=== PATIENT | male | born 1950 | race Caucasian/White ===

== ENCOUNTER 2020-10-09 22:03 | Emergency (ER) | payer MEDICARE, OTHER ==
[~2020-10-09] VITALS: Ht 172.7 cm; Wt 83.3 kg
[~2020-10-09 22:03] MED LIST: ALPR0.5T6 PO; ASPI-39 PO; CALC-95 PO; CYCL-331 PO; FENT1PAT21 TP; MULT-208 PO; OMEP40CA2 PO; SENN1TAB61 PO; VENL-109 PO; VENL75TA PO
--- NOTE | 2020-10-09 22:07 | PHYS DOC ---
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 and the entire rt side of my face was dropping.. it never got better.. I cant even close this right eye.. and it getting all irritated.. just figured.. I ought to get it checked out.. "..." I do not want to be admitted .. just see if you can do something about this..." Patient is a 70 year old male who presents with hx of possible right facial weakness since yesterday morning upon awakening. Entire right side of face is flaccid and a typical Luna's palsy pattern. Patient denies previous history of TIAs or CVAs but gives a history of congenital carotid narrowing on the right.. Has history of previous traumatic head injury years ago after a fall on ice. Patient has somewhat extensive past medical history of chronic bronchitis, COPD, coronary artery disease, CHF, sepsis, pleural effusions, pulmonary nodules, emphysema, chronic pain, arthritis, GERD, anxiety, and hypertension. Follows locally with Dr. Miller and Dr. Wells over the last several years. Patient does continue to smoke in excess of 1 pack cigarettes a day. Patient also has had somewhat increased recent cough that is nonproductive. Some subjective fevers. No recent travel. Does not have any specific Covid contacts but has been around other individuals that have been sick. Patient did not get flu vaccination this season. Review of Systems: Review of Systems: Constitutional: Subjective fever or chills Eyes: Denies change in visual acuity . Does complain of irritation in right eye because he cannot close it. HENT: History of nasal congestion Respiratory: History of a nonproductive cough. Chronic wheezing Cardiovascular: Denies chest pain or edema GI: Denies abdominal pain, nausea, vomiting, bloody stools or diarrhea : Denies dysuria Musculoskeletal: History of chronic back pain and joint pain Integument: Denies rash Neurologic: Denies headache, denies sensory changes . Right facial weakness last couple days. Endocrine: Denies polyuria or polydipsia Lymphatic: Denies swollen glands Psychiatric: Denies depression or anxiety Family History: Family History: Noncontributory to presentation Current Medications: Current Meds: See nursing for home meds Allergies: Allergies: Allergies Coded Allergies Type Severity Reaction Last Updated Verified morphine Allergy Intermediate severe gi problems 10/10/14 Yes Penicillins Allergy Unknown 10/10/14 Yes aspirin Allergy Unknown large doses (takes 81mg daily) 10/10/14 Yes Physical Exam: PE: Constitutional: no acute distress, non-toxic appearance. [] HENT: Normocephalic, atraumatic, bilateral external ears normal, oropharynx moist, no oral exudates, nose normal. Entire right facial droop consistent with Luna's palsy presentation. No sensation loss. Some right ear sensitivity. Increased air conduction 128 fork on right. Eyes: PERRLA, EOMI, conjunctiva injected right, cornea mild limbus injection on right, no discharge. Unable to close right eyelid fully. Neck: Normal range of motion, no tenderness, supple, no stridor. [] Cardiovascular:Heart rate regular rhythm, no murmur, PMI to the left. Monitor shows a sinus 's Lungs & Thorax: Bilateral breath sounds scattered wheezes throughout on auscultation basilar crackles. Abdomen: Bowel sounds normal, soft, no tenderness, no masses, no pulsatile masses. Mildly distended.] Skin: Warm, dry, no erythema, no rash. Poor turgor Back: No tenderness, no CVA tenderness. [] Extremities: No tenderness, no cyanosis, no clubbing, ROM intact, no edema. Generalized chronic muscular and joint pain but states seems more pronounced last couple days. No cording appreciated in legs Neurologic: Alert and oriented X 3, moves all extremities on request, has distal sensory,, no focal deficits noted. Right facial droop-Luna's pattern. [employer] equal. Right-hand dominant. No drift. Psychologic: Affect normal, judgement normal, mood normal. [] EKG: EKG: My interpretation EKG shows a sinus rhythm at 70 bpm. There is some nonspecific ST T strain pattern but no findings of acute STEMI of contralateral changes. EKG is similar to prior on file [] Radiology/Procedures: Radiology/Procedures: [address] [address] IMAGING REPORT Signed PATIENT: TARIK BARAJAS ACCOUNT: [id number] : 1950 LOCATION: ER AGE: 70 SEX: M EXAM STATUS: REG ER ORD. PHYSICIAN: ROSSY TRINIDAD MD REASON: neuro facial RT side, NECK PAIN PROCEDURE: CT HEAD AND CERVICAL SPINE WO PQRS Compliance Statement: One or more of the following individualized dose reduction techniques were utilized for this examination: 1. Automated exposure control 2. Adjustment of the mA and/or kV according to patient size 3. Use of iterative reconstruction technique CT head and cervical spine without contrast 10/10/2020 12:28 AM INDICATION: Right-sided face and neck pain COMPARISON: None available TECHNIQUE: Multiple axial CT images of the head were obtained from skull base through the vertex without intravenous contrast. Multiple axial CT images of the cervical spine were obtained without intravenous contrast. Coronal and sagittal reformats are provided. FINDINGS: Head: Ventricles, sulci and basal cisterns are prominent compatible with mild generalized cerebral line loss. Low-attenuation in the periventricular white mat ter is suggestive of chronic small vessel ischemic changes. There is no hydrocephalus. Todd-white matter differentiation is normal. There is no acute intracranial hemorrhage. There is no mass, mass effect or midline shift. Posterior fossa is normal in appearance. Visualized portions of the orbits are normal. Paranasal sinuses are well aerated. Mastoid air cells are well aerated. Scalp and calvaria are normal. Cervical spine: Minimal anterolisthesis of C7 on T1. There is noninstrumented osseous fusion of C5-C6. There is moderate disc height loss at C2-C3 with endplate erosive changes. Degenerative changes are identified at the atlantoaxial articulation. There is a posterior disc osteophyte complex at C2-C3 with moderate facet and uncovertebral joint disease resulting in moderate left neuroforaminal stenosis and moderate spinal canal stenosis. There is moderate facet arthropathy asy mmetric to the left. Uncovertebral joint disease noted. Mild to moderate osseous neural foraminal stenosis. There is no prevertebral soft tissue swelling. Thyroid gland is normal in appearance. Mild centrilobular pulmonary emphysematous changes are identified. There is a 5 mm subpleural solid noncalcified pulmonary nodule in the left upper lobe (series 4, image 98). IMPRESSION: 1. No acute intracranial hemorrhage. Mild generalized cerebral volume loss. Low- attenuation in the periventricular white matter is suggestive of chronic small vessel ischemic changes. 2. No acute fracture of the cervical spine. Moderate cervical spondylosis, as detailed above. 3. 5 mm subpleural solid noncalcified pulmonary nodule in left upper lobe Fleischner guidelines for incidentally detected pulmonary nodules suggests no routine follow-up for low risk patients and optional CT at 12 months for high risk patients with solid noncalcified pulmonary nodules less than 6 mm in size. 4. Mild centrilobular pulmonary emphysema. Electronically signed by: Patel Barreto MD (10/10/2020 1:03 AM) [facility] DICTATED AND SIGNED BY: PATEL BARRETO MD DATE: 10/10/2057 CC: SUZANNE WELLS MD; ROSSY TRINIDAD MD ~MTH0 0 [][place] [address] IMAGING REPORT Signed PATIENT: TARIK BARAJAS ACCOUNT: [id number] : 1950 LOCATION: ER AGE: 70 SEX: M EXAM STATUS: PRE ER ORD. PHYSICIAN: ROSSY TRINIDAD MD REASON: cp PROCEDURE: PORTABLE CHEST 1V XR CHEST 1V 10/09/2020 10:31 PM INDICATION: Chest pain COMPARISON: CT chest 10/10/2014 TECHNIQUE: Portable frontal view of the chest is provided. FINDINGS: The cardiomediastinal silhouette is within normal limits. Mild perihilar interstitial changes are identified. Trace left pleural effusion with adjacent compressive atelectasis versus infiltrate. There is no pulmonary vascular congestion. No pneumothorax. No suspicious osseous abnormality. IMPRESSION: Mild perihilar interstitial changes may represent interstitial pneumonitis versus interstitial edema. Short-term follow-up two-view chest radiograph could be of benefit. Trace left pleural effusion with adjacent compressive atelectasis versus infiltrate. Electronically signed by: Patel Barreto MD (10/09/2020 11:05 PM) [facility] DICTATED AND SIGNED BY: PATEL BARRETO MD DATE: 10/09/20 0897 CC: SUZANNE WELLS MD; ROSSY TRINIDAD MD ~MTH0 0 Heart Score: HEART Score for Chest Pain: HEART Score for Chest Pain Response (Comments) Value History Moderately Suspicious 1 ECG Nonspecific Repolarizatio 1 Age > 65 2 Risk Factors 1 or 2 Risk Factors 1 Troponin < Normal Limit (x2) 0 Total 5 Risk Factors: Risk Factors: DM, Current or recent (<one month) smoker, HTN, HLP, family history of CAD, obesity. Risk Scores: Score 0 - 3: 2.5% MACE over next 6 weeks - Discharge Home Score 4 - 6: 20.3% MACE over next 6 weeks - Admit for Clinical Observation Score 7 - 10: 72.7% MACE over next 6 weeks - Early Invasive Strategies Course & Med Decision Making: Course & Med Decision Making Pertinent Labs and Imaging studies reviewed. (See chart for details) Reviewed patient's labs and findings in detail and answer questions. Patient declines admission at this time for observation or further evaluation. States he will follow up with Dr. Wells. Patient's neuro presentation is consistent with Luna's palsy. Will do a short course of steroids 50 mg daily for 5 days. We will also do a course of Valtrex. Patient to massage right side of face several times in the day. Patient apply erythromycin ointment to eye 4 times a day and tape eyelid shut at night. Because of pulmonary findings will start on Zithromax 250 mg daily and MDI 2 puffs 4 times a day. Patient follow- up pending Covid test results. Have Dr. Wells review films and follow-up to pulmonary nodules, CHF and recheck his blood pressure after he is compliant with his meds.. Encourage patient to stop smoking. Patient to continue his baby aspirin. Patient to resume his hypertensive meds which he did not take today. Patient to return at any time to complete of observation and further evaluation. . Patient declined anticoagulation at this time. Patient encouraged her to wear his mask covering his nose and mouth at all times when away from home. Recommend patient self isolate especially since stomach symptoms are somewhat consistent with Covid. Impression: 1. Luna's palsy [id number] viral cause 2. Atypical pneumonia 3. Left-sided pleural effusions seen on previous films 4. Pulmonary nodules and emphysema 5. Tobacco abuse 6. Mild elevation in leukocytes 13.2 7. Mild anemia 12.2 hemoglobin 8. Mild elevation D-dimer 0.88 9. Hypertension-noncompliant with his hypertensive meds today [] Hill Disclaimer: Hill Disclaimer: This electronic medical record was generated, in whole or in part, using a voice recognition dictation system. Departure Departure: Referrals: SUZANNE WELLS MD (PCP) Scripts Prednisone (PREDNISONE) 50 Mg Tablet 50 MG PO DAILY for bells for 5 Days, #5 TAB Prov: ROSSY TRINIDAD MD 10/10/20 Azithromycin (ZITHROMAX) 250 Mg Tablet 250 MG PO DAILY for ANTI-BIOTIC for 5 Days, #5 TAB 0 Refills Prov: ROSSY TRINIDAD MD 10/10/20 Valacyclovir Hcl (VALACYCLOVIR) 1,000 Mg Tablet 1000 MG PO BID for Peralta for 7 Days, #14 TAB Prov: ROSSY TRINIDAD MD 10/10/20 Discharge Summary Visit Information Final Diagnosis Problems Medical Problems: (1) Luna's palsy Status: Acute (2) Viral syndrome Status: Acute Brief Hospital Course Allergies Allergies Coded Allergies Type Severity Reaction Last Updated Verified morphine Allergy Intermediate severe gi problems 10/10/14 Yes Penicillins Allergy Unknown 10/10/14 Yes aspirin Allergy Unknown large doses (takes 81mg daily) 10/10/14 Yes Vital Signs Vital Signs Date Time Temp Pulse Resp B/P (MAP) Pulse Ox O2 Delivery O2 Flow Rate FiO2 10/10/20 02:59 55 18 179/82 (114) 93 Room Air 10/09/20 22:03 98.2 Lab Results Laboratory Tests Test 10/09/20 22:50 10/09/20 23:00 10/10/20 00:55 White Blood Count 13.2 x10^3/uL (4.0-11.0) Red Blood Count 4.07 x10^6/uL (4.30-5.70) Hemoglobin 12.2 g/dL (13.0-17.5) Hematocrit 37.6 % (39.0-53.0) Mean Corpuscular Volume 92 fL (79-100) Mean Corpuscular Hemoglobin 30 pg (25-35) Mean Corpuscular Hemoglobin Concent 33 g/dL (31-37) Red Cell Distribution Width 14.2 % (11.5-14.5) Platelet Count 226 x10^3/uL (140-400) Neutrophils (%) (Auto) 73 % (31-73) Lymphocytes (%) (Auto) 19 % (24-48) Monocytes (%) (Auto) 5 % (0-9) Eosinophils (%) (Auto) 2 % (0-3) Basophils (%) (Auto) 1 % (0-3) Neutrophils # (Auto) 9.6 x10^3uL (1.8-7.7) Lymphocytes # (Auto) 2.5 x10^3/uL (1.0-4.8) Monocytes # (Auto) 0.7 x10^3/uL (0.0-1.1) Eosinophils # (Auto) 0.3 x10^3/uL (0.0-0.7) Basophils # (Auto) 0.1 x10^3/uL (0.0-0.2) Prothrombin Time 9.7 SEC (9.4-11.4) Prothromb Time International Ratio 0.9 (0.9-1.1) Activated Partial Thromboplast Time 24 SEC (23-33) D-Dimer (Vania) 0.88 mg/L (0.00-0.50) Sodium Level 138 mmol/L (136-145) Potassium Level 4.0 mmol/L (3.5-5.1) Chloride Level 101 mmol/L (98-107) Carbon Dioxide Level 30 mmol/L (21-32) Anion Gap 7 (6-14) Blood Urea Nitrogen 19 mg/dL (8-26) Creatinine 1.2 mg/dL (0.7-1.3) Estimated GFR (Cockcroft-Gault) 60.0 Glucose Level 119 mg/dL (70-99) Calcium Level 8.4 mg/dL (8.5-10.1) Magnesium Level 1.9 mg/dL (1.8-2.4) Total Bilirubin 0.2 mg/dL (0.2-1.0) Direct Bilirubin 0.1 mg/dL (0.0-0.2) Aspartate Amino Transf (AST/SGOT) 13 U/L (15-37) Alanine Aminotransferase (ALT/SGPT) 18 U/L (16-63) Alkaline Phosphatase 55 U/L (46-116) Creatine Kinase 66 U/L (39-308) Troponin I Quantitative < 0.017 ng/mL (0-0.055) < 0.017 ng/mL (0-0.055) C-Reactive Protein 16.7 mg/L (0-3.3) VN-Ftp-J-Type Natriuretic Peptide 504 pg/mL (0-124) Total Protein 7.0 g/dL (6.4-8.2) Albumin 3.2 g/dL (3.4-5.0) Lipase 43 U/L (73-393) Urine Collection Type Unknown Urine Color Yellow Urine Clarity Clear Urine pH 5.5 Urine Specific Rupert >=1.030 Urine Protein Neg (NEG-TRACE) Urine Glucose (UA) Neg mg/dL (NEG) Urine Ketones (Stick) Neg mg/dL (NEG) Urine Blood Neg (NEG) Urine Nitrite Neg (NEG) Urine Bilirubin Neg (NEG) Urine Urobilinogen Dipstick 0.2 mg/dL (0.2 mg/dL) Urine Leukocyte Esterase Neg (NEG) Urine RBC 0 /HPF (0-2) Urine WBC 0 /HPF (0-4) Urine Squamous Epithelial Cells Occ /LPF Urine Transitional Epithelial Cells Occ /LPF Urine Renal Epithelial Cells Occ /LPF Urine Bacteria Few /HPF (0-FEW) Urine Opiates Screen Neg (NEG) Urine Methadone Screen Neg (NEG) Urine Barbiturates Neg (NEG) Urine Phencyclidine Screen Neg (NEG) Urine Amphetamine/Methamphetamine Neg (NEG) Urine Benzodiazepines Screen Neg (NEG) Urine Cocaine Screen Neg (NEG) Urine Cannabinoids Screen Neg (NEG) Urine Ethyl Alcohol Neg (NEG) Brief Hospital Course Mr. Barajas is a 70 old [sex] who presented with [ ] Discharge Information Dischare Medications Current Medications Lactated Ringer's 1,000 ml @ 100 mls/hr Q10H IV Last administered on 10/09/20at 23:05; Start 10/09/20 at 22:15; Stop 10/10/20 at 03:38; Status DC Erythromycin (Romycin) 0.25 inch 1X ONCE OD Last administered on 10/09/20at 23:04; Start 10/09/20 at 22:15; Stop 10/09/20 at 22:18; Status DC Prednisone (Prednisone) 50 mg 1X ONCE PO Last administered on 10/09/20at 23:04; Start 10/09/20 at 22:30; Stop 10/09/20 at 22:31; Status DC Acyclovir (Zovirax) 800 mg 1X ONCE PO Last administered on 10/09/20at 23:04; Start 10/09/20 at 22:30; Stop 10/09/20 at 22:31; Status DC Azithromycin (Zithromax) 500 mg 1X ONCE PO Last administered on 10/10/20at 01:01; Start 10/10/20 at 00:30; Stop 10/10/20 at 00:31; Status DC Albuterol Sulfate (Ventolin Hfa Inhaler) 2 puff 1X ONCE INH Last administered on 10/10/20at 02:48; Start 10/10/20 at 02:00; Stop 10/10/20 at 02:59; Status DC Active Scripts Active Prednisone 50 Mg Tablet 50 Mg PO DAILY 5 Days Zithromax (Azithromycin) 250 Mg Tablet 250 Mg PO DAILY 5 Days Valacyclovir (Valacyclovir Hcl) 1,000 Mg Tablet 1,000 Mg PO BID 7 Days Dragon Disclaimer This chart was dictated in whole or in part using Voice Recognition software in a busy, high-work load, and often noisy Emergency Department environment. It may contain unintended and wholly unrecognized errors or omissions. Dragon Disclaimer This chart was dictated in whole or in part using Voice Recognition software in a busy, high-work load, and often noisy Emergency Department environment. It may contain unintended and wholly unrecognized errors or omissions. ROSSY TRINIDAD MD Oct 09, 2020 22:07
[2020-10-09] MEDS ORDERED: ERYTHROMYCIN 0.5% OPHTH OINTMENT 1GM TUBE. OD ONE (22:15)
[2020-10-09] MEDS ORDERED: IV RINGERS SOLUTION,LACTATED 1,000 ML IV SCH (22:15)
[2020-10-09] MEDS ORDERED: predniSONE 10 MG TABLET PO ONE (22:30)
[2020-10-09] MEDS ORDERED: ACYCLOVIR 200 MG CAPSULE PO ONE (22:30)
--- NOTE | 2020-10-09 23:08 | RAD ---
XR CHEST 1V 10/09/2020 10:31 PM INDICATION: Chest pain COMPARISON: CT chest 10/10/2014 TECHNIQUE: Portable frontal view of the chest is provided. FINDINGS: The cardiomediastinal silhouette is within normal limits. Mild perihilar interstitial changes are fred ntified. Trace left pleural effusion with adjacent compressive atelectasis versus infiltrate. There is no pulm onary vascular congestion. No pneumothorax. No suspicious osseous abnormality. IMPRESSION: Mild perihilar interstitial changes may represent interstitial pneumonitis versus interstitial edema. Short-term follow-up two-view chest radiograph could be of benefit. Trace left pleural effusion with adjacent compressive atelectasis versus infiltrate. Electronically signed by: Alis Kaba MD (10/09/2020 11:05 PM) JASEN
[2020-10-09 23:43] LABS: BASO # 0.1 x10^3/uL (0.0-0.2); BASO % 1 % (0-3); EOS # 0.3 x10^3/uL (0.0-0.7); EOS % 2 % (0-3); HEMATOCRIT 37.6 % (39.0-53.0); HEMOGLOBIN 12.2 g/dL (13.0-17.5); LYMPH # 2.5 x10^3/uL (1.0-4.8); LYMPH % 19 % (24-48); MEAN CORPUSCULAR HEMOGLOBIN 30 pg (25-35); MEAN CORPUSCULAR HGB CONC 33 g/dL (31-37); MEAN CORPUSCULAR VOLUME 92 fL (79-100); MONO # 0.7 x10^3/uL (0.0-1.1); MONO % 5 % (0-9); NEUT # 9.6 x10^3uL (1.8-7.7); NEUT % 73 % (31-73); PLATELET COUNT 226 x10^3/uL (140-400); RED BLOOD COUNT 4.07 x10^6/uL (4.30-5.70); RED CELL DISTRIBUTION WIDTH 14.2 % (11.5-14.5); WHITE BLOOD COUNT 13.2 x10^3/uL (4.0-11.0)
[2020-10-09 23:45] LABS: CALCIUM 8.4 mg/dL (8.5-10.1); CREATININE 1.2 mg/dL (0.7-1.3)
[2020-10-09 23:52] LABS: BILIRUBIN,URINE NEG (NEG); CLARITY,URINE CLEAR; COLOR,URINE YELLOW; GLUCOSE,URINE NEG (NEG)
[2020-10-09 23:53] LABS: BACTERIA,URINE FEW /HPF (0-FEW); NITRITE,URINE NEG (NEG); RBC,URINE 0 /HPF (0-2); SQUAMOUS EPITHELIAL CELL,UR OCC /LPF; UROBILINOGEN,URINE 0.2 mg/dL (0.2 mg/dL); WBC,URINE 0 /HPF (0-4)
[2020-10-09 23:54] LABS: BARBITURATES NEG (NEG); BENZODIAZEPINES NEG (NEG); CANNABINOIDS NEG (NEG); COCAINE NEG (NEG); METHADONE NEG (NEG); OPIATES NEG (NEG); PHENCYCLIDINE NEG (NEG)
[2020-10-09 23:57] LABS: ALBUMIN 3.2 g/dL (3.4-5.0); C REACTIVE PROTEIN 16.7 mg/L (0-3.3); DIRECT BILIRUBIN 0.1 mg/dL (0.0-0.2); MAGNESIUM 1.9 mg/dL (1.8-2.4); TOTAL BILIRUBIN 0.2 mg/dL (0.2-1.0)
[2020-10-09 23:58] LABS: AMPHETAMINE/METHAMPHETAMINE NEG (NEG)
[2020-10-10] MEDS ORDERED: AZITHROMYCIN 250 MG TABLET. PO ONE (00:30)
--- NOTE | 2020-10-10 01:06 | RAD ---
PQRS Compliance Statement: One or more of the following individualized dose reduction techniques were utilized for this examinat ion: 1. Automated exposure control 2. Adjustment of the mA and/or kV according to patient size 3. Use of iterative reconstruction technique CT head and cervical spine without contrast 10/10/2020 12:28 AM INDICATION: Right-sided face and neck pain COMPARISON: None available TECHNIQUE: Multiple axial CT images of the head were obtained from skull base through the vertex with out intravenous contrast. Multiple axial CT images of the cervical spine were obtained without intrav enous contrast. Coronal and sagittal reformats are provided. FINDINGS: Head: Ventricles, sulci and basal cisterns are prominent compatible with mild generalized cerebral line los s. Low-attenuation in the periventricular white matter is suggestive of chronic small vessel ischemic changes. There is no hydrocephalus. Todd-white matter differentiation is normal. There is no acute i ntracranial hemorrhage. There is no mass, mass effect or midline shift. Posterior fossa is normal in appearance. Visualized portions of the orbits are normal. Paranasal sinuses are well aerated. Mastoid air cells a re well aerated. Scalp and calvaria are normal. Cervical spine: Minimal anterolisthesis of C7 on T1. There is noninstrumented osseous fusion of C5-C6. There is moder ate disc height loss at C2-C3 with endplate erosive changes. Degenerative changes are identified at t he atlantoaxial articulation. There is a posterior disc osteophyte complex at C2-C3 with moderate fac et and uncovertebral joint disease resulting in moderate left neuroforaminal stenosis and moderate sp inal canal stenosis. There is moderate facet arthropathy asymmetric to the left. Uncovertebral joint disease noted. Mild to moderate osseous neural foraminal stenosis. There is no prevertebral soft tiss ue swelling. Thyroid gland is normal in appearance. Mild centrilobular pulmonary emphysematous change s are identified. There is a 5 mm subpleural solid noncalcified pulmonary nodule in the left upper lo be (series 4, image 98). IMPRESSION: 1. No acute intracranial hemorrhage. Mild generalized cerebral volume loss. Low-attenuation in the pe riventricular white matter is suggestive of chronic small vessel ischemic changes. 2. No acute fracture of the cervical spine. Moderate cervical spondylosis, as detailed above. 3. 5 mm subpleural solid noncalcified pulmonary nodule in left upper lobe Fleischner guidelines for i ncidentally detected pulmonary nodules suggests no routine follow-up for low risk patients and option al CT at 12 months for high risk patients with solid noncalcified pulmonary nodules less than 6 mm in size. 4. Mild centrilobular pulmonary emphysema. Electronically signed by: Alis Kaba MD (10/10/2020 1:03 AM) [facility]
[2020-10-10] MEDS ORDERED: VALA10008 PO (01:56)
[2020-10-10] MEDS ORDERED: PRED50TA PO (01:56)
[2020-10-10] MEDS ORDERED: AZIT250T PO (01:56)
[2020-10-10] MEDS ORDERED: ALBUTEROL SULFATE 8GM INHALER. INH ONE (02:00)
[2020-10-10 02:59] VITALS: BP 179/82
== END 2020-10-10 03:00 | disposition home or self-care (01) ==
LOC: ER 22:03
DX: G51.0 Bell's palsy (principal); J18.9 Pneumonia, unspecified organism; J90 Pleural effusion, not elsewhere classified; J43.8 Other emphysema; R91.8 Other nonspecific abnormal finding of lung field; D72.829 Elevated white blood cell count, unspecified; D64.9 Anemia, unspecified; R79.1 Abnormal coagulation profile; M19.90 Unspecified osteoarthritis, unspecified site; I25.10 Atherosclerotic heart disease of native coronary artery without angina pectoris; J44.9 Chronic obstructive pulmonary disease, unspecified; M79.7 Fibromyalgia; F17.210 Nicotine dependence, cigarettes, uncomplicated; G89.29 Other chronic pain; I11.0 Hypertensive heart disease with heart failure; I50.9 Heart failure, unspecified; Z87.820 Personal history of traumatic brain injury; Z91.14 Patient's other noncompliance with medication regimen; Z86.2 Personal history of diseases of the blood and blood-forming organs and certain disorders involving the immune mechanism; Z20.828 Contact with and (suspected) exposure to other viral communicable diseases
CPT/HCPCS: 36415; 70450; 71045; 72125; 80048; 80076; 80307; 81001; 82550; 83690; 83735; 83880; 84443; 84484; 85025; 85379; 85610; 85730; 86140; 94640; 96360; 96361; 99285; C9803; J7120; J7512; U0003; 94664

== ENCOUNTER → 2021-06-21 | Outpatient (CLI) | payer MEDICARE, OTHER ==
[~2021-06-21] MED LIST changes: +AZIT250T PO; +PRED50TA PO; +VALA10008 PO
--- NOTE | 2021-06-22 11:07 | RAD ---
EXAM: XR LUMBAR SPINE 2-3V 06/21/2021 1:03 PM CLINICAL INDICATION: Chronic back pain, radiculopathy COMPARISON: CT chest 10/09/2014 TECHNIQUE: 3 views of the lumbar spine FINDINGS: There 5 nonrib-bearing lumbar vertebral bodies. Old superior endplate depression of L1 unc hanged. There is 8mm anterolisthesis of L2 on L3. There is straightening of lordosis. There are surgi mauro changes of laminectomies at L1-L5 and there appears to be osseous fusion along the posterior pala ents at these levels. There are interbody grafts at L2-L3 and L3-L4 and probable osseous fusion acros s the L4-L5 and L5-S1 disc spaces. Moderate degenerative disc disease in the lower thoracic spine. Th ere is a spinal stimulator with leads extend cranially in the dorsal thoracic spine. IMPRESSION: 1. Grade 1 anterolisthesis at L2-L3 and straightening of lumbar lordosis 3. Multilevel degenerative disc disease with surgical changes of posterior decompression and fusion a t L1-L2 through L5-S1 Electronically signed by: Darcie Sandoval MD (06/22/2021 11:04 AM) [id number]
== END ==
LOC: RAD 12:49
PROVIDERS: ATTEND Family Medicine
DX: M51.17 Intervertebral disc disorders with radiculopathy, lumbosacral region (principal); M51.15 Intervertebral disc disorders with radiculopathy, thoracolumbar region; M43.16 Spondylolisthesis, lumbar region; M40.46 Postural lordosis, lumbar region; M53.86 Other specified dorsopathies, lumbar region
CPT/HCPCS: 72100